=== PATIENT | male | born 1975 | race Hispanic/Latino ===

== ENCOUNTER 2018-07-25 02:27 | Emergency (ER) | payer SELFPAY ==
[2018-07-25] MEDS ORDERED: CEFAZOLIN SODIUM 1 GM VIAL ONE (03:21)
[2018-07-25] MEDS ORDERED: TETANUS/DIPHTHERIA TOXOID [ADULT] 0.5 ML VIAL IM ONE (03:22)
[2018-07-25 03:33] LABS: BASOPHILS % (AUTO) 0.6 % (0.0-5.0); EOSINOPHILS % (AUTO) 1.7 % (0.0-8.0); HEMATOCRIT 43.6 % (42-54); LYMPHOCYTES % (AUTO) 31.9 % (21.0-51.0); MEAN CORPUSCULAR HEMOGLOBIN 32.2 pg (27.0-33.0); MEAN CORPUSCULAR HGB CONC 33.5 g/dL (32.0-36.0); MONOCYTES % (AUTO) 5.2 % (3.0-13.0); NEUTROPHILS % (AUTO) 60.6 % (40.0-77.0); NUCLEATED RED BLOOD CELLS 0.1 % (0.0-0.19); PLATELET COUNT (AUTO) 341 K/uL (130-400); RED BLOOD CELL COUNT(AUTO) 4.55 MIL/uL (4.50-6.20); RED CELL DISTRIBUTION WIDTH 13.9 % (11.0-15.5); WHITE BLOOD COUNT (AUTO) 11.3 K/uL (4.8-10.8)
[2018-07-25 03:36] LABS: CREATININE 0.8 mg/dL (0.5-1.5)
[2018-07-25 03:40] LABS: ALBUMIN 3.6 g/dL (3.5-5.0); BILIRUBIN,TOTAL 0.2 mg/dL (0.2-1.0); TOTAL PROTEIN, SERUM 7.8 g/dL (6.0-8.3)
[2018-07-25 03:48] LABS: INR 0.93 (0.85-1.15); PARTIAL THROMBOPLASTIN TIME 27.3 SEC (26.3-35.5); PROTHROMBIN TIME 9.8 SEC (9.6-11.6)
== END 2018-07-25 04:03 | disposition left against medical advice (07) ==
LOC: EDH 02:27
DX: S61.412A Laceration without foreign body of left hand, initial encounter (principal); Z72.0 Tobacco use; W45.8XXA Other foreign body or object entering through skin, initial encounter; Y93.89 Activity, other specified; Y92.89 Other specified places as the place of occurrence of the external cause; Y99.8 Other external cause status
CPT/HCPCS: 36415; 80053; 85025; 85610; 85730; 90471; 90714; 96365; 99283; J0690

== ENCOUNTER 2018-07-25 05:38 | Inpatient (IN) | payer SELFPAY ==
[~2018-07-25] VITALS: Ht 175.3 cm; Wt 72.4 kg
[2018-07-25] MEDS ORDERED: ONDANSETRON HCL 4 MG/2 ML VIAL ONE (06:16)
[2018-07-25] MEDS ORDERED: MORPHINE SULFATE 4 MG/1ML SYG ONE ×2 (06:16→11:59)
[2018-07-25] MEDS ORDERED: MORPHINE SULFATE 4 MG/1ML SYG IVP PRN (07:30)
[2018-07-25] MEDS ORDERED: ACETAMINOPHEN-CODEINE 300/30MG TAB PO PRN (07:30)
[2018-07-25] MEDS ORDERED: ONDANSETRON HCL 4 MG/2 ML VIAL IVP PRN (07:30)
[2018-07-25] MEDS ORDERED: SODIUM CHLORIDE 0.9% 1000ML 1,000 ML IV ONE (08:12)
[2018-07-25] MEDS ORDERED: ACETAMINOPHEN-CODEINE 300/30MG TAB ONE (08:21)
[2018-07-25] MEDS ORDERED: CEFAZOLIN SODIUM 1 GM VIAL ONE (11:58)
[2018-07-25 13:08] VITALS: BP 137/84
[2018-07-25] MEDS: CEFAZOLIN SODIUM 1 GM VIAL IVP SCH ×2 (13:54→21:30)
[2018-07-25] MEDS: SODIUM CHLORIDE 0.9% 1000ML 1,000 ML IV SCH (13:55)
[2018-07-25 16:39] VITALS: BP 134/71
[2018-07-25 20:00] VITALS: BP 128/70
[2018-07-26] VITALS (20 sets, daily range): BP systolic 109–140; BP diastolic 60–92
[2018-07-26] MEDS: CEFAZOLIN SODIUM 1 GM VIAL IVP SCH ×4 (02:19→19:58)
[2018-07-26] MEDS: SODIUM CHLORIDE 0.9% 1000ML 1,000 ML IV SCH (03:19)
[2018-07-26] MEDS ORDERED: LIDOCAINE PF 2% 5ML ABBOJECT ONE (10:29)
[2018-07-26] MEDS ORDERED: DEXAMETHASONE SOD PHOSPHATE 10MG/ML 1ML VIAL ONE (10:29)
[2018-07-26] MEDS ORDERED: ONDANSETRON HCL 4 MG/2 ML VIAL ONE (10:30)
[2018-07-26] MEDS ORDERED: PROPOFOL 10 MG/ML 20ML VIAL IV ONE (10:30)
[2018-07-26] MEDS ORDERED: NEOSTIGMINE 5MG/5ML SYR IV ONE (10:30)
[2018-07-26] MEDS ORDERED: ROCURONIUM 10MG/1ML SYR 10 MG/ML ML ONE (10:30)
[2018-07-26] MEDS ORDERED: MIDAZOLAM HCL 1 MG/ML 2ML VIAL ONE (10:30)
[2018-07-26] MEDS ORDERED: GLYCOPYRROLATE 1 MG/5 ML SYRINGE ONE (10:30)
[2018-07-26] MEDS ORDERED: FENTANYL CITRATE PF 50 MCG/1 ML 2ML VIAL ONE ×2 (10:31→13:24)
[2018-07-26 12:43] LABS: BASOPHILS % (AUTO) 0.7 % (0.0-5.0); EOSINOPHILS % (AUTO) 1.7 % (0.0-8.0); HEMATOCRIT 41.9 % (42-54); LYMPHOCYTES % (AUTO) 27.1 % (21.0-51.0); MEAN CORPUSCULAR HGB CONC 34.3 g/dL (32.0-36.0); MEAN CORPUSCULAR VOLUME 96.2 fL (79-99); MONOCYTES % (AUTO) 5.3 % (3.0-13.0); NEUTROPHILS % (AUTO) 65.2 % (40.0-77.0); PLATELET COUNT (AUTO) 312 K/uL (130-400); RED BLOOD CELL COUNT(AUTO) 4.35 MIL/uL (4.50-6.20); RED CELL DISTRIBUTION WIDTH 13.5 % (11.0-15.5); WHITE BLOOD COUNT (AUTO) 10.9 K/uL (4.8-10.8)
[2018-07-26 12:55] LABS: CREATININE 0.8 mg/dL (0.5-1.5); POTASSIUM 4.3 mmol/L (3.5-5.1)
[2018-07-26] MEDS ORDERED: LIDOCAINE HCL 2% JELLY 5 ML ONE (13:01)
[2018-07-26] MEDS ORDERED: CEFAZOLIN SODIUM 1 GM VIAL ONE (13:25)
[2018-07-26] MEDS ORDERED: CEFAZOLIN SODIUM 1 GM VIAL IRRIG ONE (13:30)
[2018-07-27] VITALS: BP 126/84
[2018-07-27] MEDS: CEFAZOLIN SODIUM 1 GM VIAL IVP SCH ×2 (02:02→09:37)
[2018-07-27 04:00] VITALS: BP 113/65
[2018-07-27 07:53] VITALS: BP 130/53
== END 2018-07-27 11:20 | disposition home or self-care (01) | DRG 513 ==
LOC: EDH 05:38 → EDHIP 05:39 → 4AH 12:51
PROVIDERS: ADMIT Surgery Plastic and Reconstructive Surgery; ATTEND Surgery Plastic and Reconstructive Surgery
PROC: 0LB80ZZ Excision of Left Hand Tendon, Open Approach (ICD-10-PCS; principal; 2018-07-26 13:09)
DX: S66.125A Laceration of flexor muscle, fascia and tendon of left ring finger at wrist and hand level, initial encounter (principal); L02.512 Cutaneous abscess of left hand; S66.127A Laceration of flexor muscle, fascia and tendon of left little finger at wrist and hand level, initial encounter; X99.1XXA Assault by knife, initial encounter; Y93.89 Activity, other specified; Y92.89 Other specified places as the place of occurrence of the external cause; Y99.8 Other external cause status
CPT/HCPCS: 36415; 71045; 73130; 80048; 84484; 85025; 93005; A4218; G0378; J0690; J1100; J2001; J2250; J2270; J2405; J2704; J2710; J3010; J3490; J7030